=== PATIENT | male | born 1935 | race Caucasian/White ===

== ENCOUNTER → 2019-06-03 | Outpatient (CLI) | payer MEDICARE ==
[~2019-06-03] MED LIST: LISINOPRIL20 MG PO; NITROLINGU0.4 MG/ACT SL
== END | disposition home or self-care (01) ==
LOC: US 12:46
DX: E04.1 Nontoxic single thyroid nodule (principal)

== ENCOUNTER → 2019-12-27 | Outpatient (CLI) | payer MEDICARE ==
[2019-12-27 14:56] LABS: CKMB 1.5 ng/ml (0.5-3.6); CPK 87 U/L (39-308)
[2019-12-27 14:59] LABS: TROPONIN I < 0.015 ng/ml (<0.045)
== END | disposition home or self-care (01) ==
LOC: LAB 14:18
PROVIDERS: Nurse Practitioner Primary Care
DX: M79.602 Pain in left arm (principal); I10 Essential (primary) hypertension

== ENCOUNTER → 2021-04-10 | Outpatient (CLI) | payer MEDICARE | END | disposition home or self-care (01) | LOC: ORTHO 00:24 | PROVIDERS: ATTEND Orthopaedic Surgery | DX: M25.519 Pain in unspecified shoulder (principal) ==

== ENCOUNTER 2021-09-26 01:22 | Emergency (ER) | payer MEDICARE ==
[~2021-09-26] VITALS: Ht 182.8 cm; Wt 75.7 kg
[~2021-09-26 01:22] MED LIST changes: +ASPIRIN81 M1 PO; +CARVEDILOL6.25 MG PO; +HYDROCODONE-AC1 EAC1 PO; +PRAVASTATIN SOD20 MG PO; +QUINOL; +QUNOL
[2021-09-26 01:36] VITALS: BP 156/79
== END 2021-09-26 03:17 | disposition home or self-care (01) ==
LOC: ED 01:22
DX: R33.9 Retention of urine, unspecified (principal); K59.00 Constipation, unspecified; Z79.899 Other long term (current) drug therapy

== ENCOUNTER → 2022-11-01 | Outpatient (CLI) | payer MEDICARE | END | disposition home or self-care (01) | LOC: LAB 08:01 | PROVIDERS: ATTEND Psychiatry & Neurology Neurology | DX: R52 Pain, unspecified (principal); Z79.899 Other long term (current) drug therapy ==

== ENCOUNTER 2024-02-02 05:59 | Emergency (ER) | payer MEDICARE ==
[~2024-02-02] VITALS: Ht 182.8 cm; Wt 83.9 kg
[~2024-02-02 05:59] MED LIST changes: +NEURONTIN800 MG PO
[2024-02-02 06:22] LABS: BASO # 0.1 10*3/uL (0.0-0.1); BASO % 0.7 % (0.0-1.0); EOS # 0.2 10*3/uL (0.0-0.4); EOS % 2.4 % (1.0-4.0); HEMATOCRIT 41.8 % (42.0-52.0); LYMPH # 2.3 10*3/uL (1.3-4.4); LYMPH % 31.4 % (27.0-41.0); MEAN CELL VOLUME 89.5 fl (80.0-94.0); MEAN CORPUSCULAR HGB 29.6 pg (27.0-31.0); MEAN PLATELET VOLUME 9.7 fl (9.6-12.3); MONO # 0.7 10*3/uL (0.1-1.0); MONO % 9.6 % (3.0-9.0); NEUT % 55.8 % (47.0-73.0); PLATELET COUNT AUTOMATED 195 10*3/uL (130-400); RED BLOOD COUNT 4.67 10*6/uL (4.50-5.90); WHITE BLOOD COUNT 7.2 10*3/uL (4.8-10.8)
[2024-02-02 06:30] LABS: BILIRUBIN Negative (Negative); BLOOD Negative (Negative); CLARITY Clear (Clear); COLOR Yellow (Yellow); GLUCOSE Negative (Negative); KETONE Negative (Negative); NITRITE Negative (Negative); PH 5.5 (4.5-8.0)
[2024-02-02 06:40] LABS: BUN 15 mg/dl (9-23); CHLORIDE 106 mmol/L (98-107); LIPASE 26 U/L (12-53)
[2024-02-02 06:48] LABS: LEUKO ESTERASE Trace (Negative)
[2024-02-02 06:59] LABS: BACTERIA 1+
[2024-02-02 07:28] VITALS: BP 154/67
[2024-02-02 07:39] LABS: ALKALINE PHOSPHATASE 68 U/L (46-116); BUN 16 mg/dl (9-23); CHLORIDE 107 mmol/L (98-107); TOTAL PROTEIN 6.4 gm/dL (6.0-8.0)
[2024-02-02 07:42] LABS: SGPT/ALT < 7 U/L (5-49)
[2024-02-02] MEDS ORDERED: IOHEXOL 300 MG/ML 100 ML VIAL IV ONE (08:05)
[2024-02-04] MEDS ORDERED: SERTRALINE HYDR50 MG PO (11:48)
[2024-02-04] MEDS ORDERED: IMDUR SA30 MG PO (11:48)
[2024-02-04] MEDS ORDERED: HYDROXYZINE HCL25 MG PO (12:09)
== END 2024-02-02 11:05 | disposition home or self-care (01) ==
LOC: ED 05:59
PROVIDERS: Emergency Medicine; Internal Medicine
DX: F41.9 Anxiety disorder, unspecified (principal); I10 Essential (primary) hypertension; Z98.890 Other specified postprocedural states

== ENCOUNTER 2024-02-07 07:43 | Emergency (ER) | payer MEDICARE ==
[~2024-02-07] VITALS: Ht 182.8 cm; Wt 83.0 kg
[~2024-02-07 07:43] MED LIST changes: +HYDROXYZINE HCL25 MG PO; +IMDUR SA30 MG PO; +SERTRALINE HYDR50 MG PO
[2024-02-07 07:55] VITALS: BP 168/101
[2024-02-07 08:11] LABS: BASO # 0.1 10*3/uL (0.0-0.1); BASO % 0.8 % (0.0-1.0); EOS # 0.1 10*3/uL (0.0-0.4); EOS % 1.8 % (1.0-4.0); HEMATOCRIT 44.8 % (42.0-52.0); LYMPH # 2.1 10*3/uL (1.3-4.4); LYMPH % 27.8 % (27.0-41.0); MEAN CELL VOLUME 91.1 fl (80.0-94.0); MEAN CORPUSCULAR HGB 29.5 pg (27.0-31.0); MEAN CORPUSCULAR HGB CONC 32.4 g/dl (33.0-37.0); MEAN PLATELET VOLUME 9.9 fl (9.6-12.3); MONO # 0.6 10*3/uL (0.1-1.0); MONO % 8.4 % (3.0-9.0); NEUT # 4.6 10*3/uL (2.3-7.9); NEUT % 60.9 % (47.0-73.0); PLATELET COUNT AUTOMATED 223 10*3/uL (130-400); RED BLOOD COUNT 4.92 10*6/uL (4.50-5.90); RED CELL DISTRI WIDTH 13.2 % (0-14.5); WHITE BLOOD COUNT 7.6 10*3/uL (4.8-10.8)
[2024-02-07 08:28] LABS: ACT PARTIAL THROMBO TIME 27.3 SECONDS (20.0-32.1)
[2024-02-07 08:39] LABS: ALKALINE PHOSPHATASE 74 U/L (46-116); BUN 16 mg/dl (9-23); CHLORIDE 106 mmol/L (98-107); CPK 60 U/L (34-171); LIPASE 25 U/L (12-53); POTASSIUM 4.2 mmol/L (3.4-5.1); SGPT/ALT 10 U/L (5-49); TOTAL PROTEIN 6.9 gm/dL (6.0-8.0)
[2024-02-07 08:41] LABS: ETHYL ALCOHOL < 3.0 mg/dl (<3)
[2024-02-07 10:22] LABS: URINE AMPHETAMINES Negative (1000ng/ml); URINE BARBITURATES Negative (200ng/ml); URINE BENZODIAZEPINES Negative (200ng/ml); URINE CANNABINOIDS (THC) Negative (50ng/ml); URINE COCAINE Negative (300ng/ml); URINE METHADONE Negative (300ng/ml); URINE OPIATES Negative (300ng/ml); URINE PHENCYCLIDINE Negative (25ng/ml)
[2024-02-07 10:36] LABS: BILIRUBIN Negative (Negative); BLOOD Negative (Negative); CLARITY Clear (Clear); COLOR Yellow (Yellow); GLUCOSE Negative (Negative); KETONE 1+ (Negative); LEUKO ESTERASE Trace (Negative); NITRITE Negative (Negative)
[2024-02-07 10:57] LABS: BACTERIA TRACE; EPITHELIAL CELLS 0-2
[2024-02-07] MEDS ORDERED: hydrOXYzine pamoate 25 MG CAP PO ONE (13:20)
== END 2024-02-07 13:25 | disposition home or self-care (01) ==
LOC: ED 07:43
PROVIDERS: Internal Medicine
DX: F43.22 Adjustment disorder with anxiety (principal); Z20.822 Contact with and (suspected) exposure to COVID-19; F41.9 Anxiety disorder, unspecified; Z79.899 Other long term (current) drug therapy; Z79.82 Long term (current) use of aspirin; Z95.5 Presence of coronary angioplasty implant and graft; Z98.84 Bariatric surgery status; Z98.890 Other specified postprocedural states

== ENCOUNTER 2024-04-01 10:02 | Emergency (ER) | payer MEDICARE ==
[~2024-04-01] VITALS: Ht 177.8 cm; Wt 79.4 kg
[2024-04-01 10:14] VITALS: BP 135/88
[2024-04-01] MEDS ORDERED: Acetaminophen/Oxycodone 5 MG/325 MG TABLET PO ONE (10:20)
[2024-04-01] MEDS ORDERED: Tdap Vaccine 0.5 ML SYR (Adult Vaccine) IM ONE (10:20)
[2024-04-01] MEDS ORDERED: CEPHALEXIN 500 MG CAP PO ONE (10:25)
[2024-04-01] MEDS ORDERED: Lidocaine Hydrochloride 30 ML VIAL IM ONE (10:45)
[2024-04-01] MEDS ORDERED: Lidocaine Hydrochloride 5 ML AMP IM ONE (10:50)
[2024-04-01] MEDS ORDERED: HYDROCODONE-AC1 EAC1 PO (11:10)
[2024-04-01] MEDS ORDERED: CEPHALEXIN500 M1 PO (11:10)
[2024-04-01] MEDS ORDERED: Lidocaine Hydrochloride 30 ML VIAL SC ONE (11:35)
== END 2024-04-01 11:56 | disposition home or self-care (01) ==
LOC: ED 10:02
DX: S62.612A Displaced fracture of proximal phalanx of right middle finger, initial encounter for closed fracture (principal); I25.10 Atherosclerotic heart disease of native coronary artery without angina pectoris; I10 Essential (primary) hypertension; E78.5 Hyperlipidemia, unspecified; Z98.890 Other specified postprocedural states; W19.XXXA Unspecified fall, initial encounter; Y93.73 Activity, racquet and hand sports; Y92.312 Tennis court as the place of occurrence of the external cause; Y99.8 Other external cause status

== ENCOUNTER → 2024-05-24 | Outpatient (CLI) | payer MEDICARE ==
[~2024-05-24] MED LIST changes: +CEPHALEXIN500 M1 PO
== END | disposition home or self-care (01) ==
LOC: RAD 13:28
PROVIDERS: ATTEND Nurse Practitioner Family
DX: S69.91XA Unspecified injury of right wrist, hand and finger(s), initial encounter (principal); M19.041 Primary osteoarthritis, right hand; M79.89 Other specified soft tissue disorders; X58.XXXA Exposure to other specified factors, initial encounter; Y93.89 Activity, other specified; Y92.89 Other specified places as the place of occurrence of the external cause; Y99.8 Other external cause status

== ENCOUNTER → 2024-08-16 | Outpatient (CLI) | payer MEDICARE ==
[2024-08-16 08:38] LABS: BASO # 0.1 10*3/uL (0.0-0.1); BASO % 0.7 % (0.0-1.0); EOS # 0.1 10*3/uL (0.0-0.4); EOS % 1.7 % (1.0-4.0); HEMATOCRIT 43.2 % (42.0-52.0); LYMPH # 2.3 10*3/uL (1.3-4.4); LYMPH % 30.3 % (27.0-41.0); MEAN CELL VOLUME 94.1 fl (80.0-94.0); MEAN CORPUSCULAR HGB 30.1 pg (27.0-31.0); MEAN CORPUSCULAR HGB CONC 31.9 g/dl (33.0-37.0); MONO # 0.7 10*3/uL (0.1-1.0); MONO % 9.3 % (3.0-9.0); NEUT # 4.4 10*3/uL (2.3-7.9); NEUT % 57.7 % (47.0-73.0); PLATELET COUNT AUTOMATED 208 10*3/uL (130-400); RED BLOOD COUNT 4.59 10*6/uL (4.50-5.90); WHITE BLOOD COUNT 7.6 10*3/uL (4.8-10.8)
[2024-08-16 09:01] LABS: ALKALINE PHOSPHATASE 66 U/L (46-116); BUN 17 mg/dl (9-23); CHLORIDE 105 mmol/L (98-107); POTASSIUM 4.3 mmol/L (3.4-5.1); TOTAL PROTEIN 6.5 gm/dL (6.0-8.0)
[2024-08-16 09:17] LABS: SGPT/ALT < 7 U/L (5-49)
== END | disposition home or self-care (01) ==
LOC: LAB 07:58
PROVIDERS: ATTEND Nurse Practitioner Psychiatric/Mental Health
DX: Z51.81 Encounter for therapeutic drug level monitoring (principal)

== ENCOUNTER → 2024-08-27 | Outpatient (CLI) | payer MEDICARE ==
[2024-08-27 09:48] LABS: ALKALINE PHOSPHATASE 70 U/L (46-116); BUN 12 mg/dl (9-23); CHLORIDE 105 mmol/L (98-107); CHOLESTEROL 146 mg/dL (<200); LDL CHOLESTEROL 82 mg/dL (9-159); POTASSIUM 4.5 mmol/L (3.4-5.1); SGPT/ALT 7 U/L (5-49); TOTAL PROTEIN 6.5 gm/dL (6.0-8.0); TRIGLYCERIDES 85 mg/dl (<150)
== END | disposition home or self-care (01) ==
LOC: LAB 08:29
PROVIDERS: ATTEND Internal Medicine Interventional Cardiology
DX: I08.0 Rheumatic disorders of both mitral and aortic valves (principal); I10 Essential (primary) hypertension; I21.4 Non-ST elevation (NSTEMI) myocardial infarction; E78.2 Mixed hyperlipidemia

== ENCOUNTER → 2025-08-10 | Outpatient (CLI) | payer MEDICARE ==
[2025-08-10 16:56] LABS: BASO # 0.1 10*3/uL (0.0-0.1); BASO % 0.8 % (0.0-1.0); EOS # 0.2 10*3/uL (0.0-0.4); EOS % 2.5 % (1.0-4.0); MEAN CELL VOLUME 93.9 fl (80.0-94.0); MEAN CORPUSCULAR HGB 29.7 pg (27.0-31.0); MEAN PLATELET VOLUME 10.3 fl (9.6-12.3); MONO # 0.6 10*3/uL (0.1-1.0); MONO % 9.0 % (3.0-9.0); NEUT # 3.7 10*3/uL (2.3-7.9); NEUT % 60.8 % (47.0-73.0); NUCLEATED RED BLOOD CELL 0.0 % (0.0-0.0); NUCLEATED RED BLOOD CELL 0.0 10*3/uL (0.0-0.0); PLATELET COUNT AUTOMATED 211 10*3/uL (130-400); RED CELL DISTRI WIDTH 13.2 % (0-14.5)
[2025-08-10 17:10] LABS: BUN 14 mg/dl (9-23); SGPT/ALT 9 U/L (5-49)
[2025-08-10 17:12] LABS: VITAMIN D, 25-HYDROXY 41.2 ng/mL (30-100)
== END | disposition home or self-care (01) ==
LOC: LAB 12:56
PROVIDERS: ATTEND Nurse Practitioner Family
DX: R53.83 Other fatigue (principal); E55.9 Vitamin D deficiency, unspecified

== ENCOUNTER → 2025-09-15 | Outpatient (CLI) | payer MEDICARE ==
[2025-09-15 15:57] LABS: BUN 14 mg/dl (9-23); LDL CHOLESTEROL 78 mg/dL (9-159)
[2025-09-15 16:00] LABS: SGPT/ALT < 7 U/L (5-49)
== END | disposition home or self-care (01) ==
LOC: LAB 10:32
PROVIDERS: ATTEND Nurse Practitioner Family
DX: I10 Essential (primary) hypertension (principal); E78.5 Hyperlipidemia, unspecified; R53.83 Other fatigue